=== PATIENT | male | born 1945 | race Caucasian/White ===

== ENCOUNTER 2019-06-19 11:31 | Emergency (ER) | payer MEDICARE, BC ==
[2019-06-19] MEDS ORDERED: Ketorolac 30 MG/ML SDV IVPUSH ONE (11:44)
[2019-06-19] MEDS ORDERED: Ondansetron 4 MG/2 ML SDV IVPUSH ONE (11:44)
[2019-06-19] MEDS ORDERED: Sodium Chloride 0.9% 1,000 ML IV SCH (11:45)
[2019-06-19] MEDS ORDERED: Tamsulosin 0.4 MG Cap.ER PO ONE (12:15)
--- NOTE | 2019-06-19 12:21 | EDM.PDOC ---
ED HPI GENERAL MEDICAL PROBLEM - General Chief Complaint: Abdominal Pain Stated Complaint: ABD PAIN Time Seen by Provider: 06/19/19 11:40 Source of Information: Reports: Patient, Family History Limitations: Reports: No Limitations - History of Present Illness INITIAL COMMENTS - FREE TEXT/NARRATIVE: c/o R flank pain felt fine yesterday, onset pain at 3:30 AM, sharp, cramping, eased off, then returned when to [facility], Yamel Levine called and sent pt here, he was quite uncomfortable in clinic, would not lay still for phlebotomy rolling on bed here in ED as well, IV started, felt much better after Toradol 30 mg IV given as well as Zofran 4 mg IV for mild nausea here with had one prior attack renal colic 10y ago, passed spontaneously not on meds had nl BM earlier today without change in pain no f/c/d pain R flank and R lower back into R groin had hernia repair in past, no other abd surgery R lower abdomen Pain Score (Numeric/FACES): 10 - Related Data Allergies Allergy/AdvReac Type Severity Reaction Status Date / Time No Known Allergies Allergy Verified 09/30/14 18:08 Home Meds: Home Meds Aspirin [Ecotrin EC] 325 mg PO BID 06/29/15 [History] Polyethylene Glycol 3350 [MiraLAX] 17 gm PO DAILY 06/29/15 [History] Sennosides [Senna Laxative] 25 mg PO BID 06/29/15 [History] Acetaminophen/HYDROcodone [[place] 325-5 MG] 1 - 2 tab PO Q6H PRN #20 tab [Rx] Ciprofloxacin HCl 500 mg PO BID #13 tablet 06/19/19 [Rx] Hydrocodone/Acetaminophen [[place] 5-325 Tablet] 1 each PO Q6H PRN #6 tablet 06/19 [Rx] Ketorolac [Toradol] 10 mg PO QID #20 tab 06/19/19 [Rx] Tamsulosin HCl 0.4 mg PO DAILY #7 capsule 06/19/19 [Rx] Past Medical History - Past Health History Medical/Surgical History: Denies Medical/Surgical History HEENT History: Reports: Impaired Vision Cardiovascular History: Reports: None Respiratory History: Reports: None Gastrointestinal History: Reports: None Genitourinary History: Reports: None 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 L hip replacement 06/2015 Neurological History: Reports: None Psychiatric History: Reports: None Endocrine/Metabolic History: Reports: None Hematologic History: Reports: None Immunologic History: Reports: None Oncologic (Cancer) History: Reports: None Dermatologic History: Reports: Other (See Below) Other Dermatologic History: MORTENSEN OF LOWER LEGS WITH SKIN GRAFTING AT AGE 8 - Infectious Disease History Other Infectious Disease History: PT DOES NOT KNOW - Past Surgical History Musculoskeletal Surgical History: Reports: Hip Replacement, Shoulder Surgery, Other (See Below) ED ROS GENERAL - Review of Systems Review Of Systems: See Below Constitutional: Reports: No Symptoms HEENT: Reports: No Symptoms Respiratory: Reports: No Symptoms Cardiovascular: Reports: No Symptoms Endocrine: Reports: No Symptoms GI/Abdominal: Reports: Abdominal Pain, Nausea. Denies: Vomiting : Reports: No Symptoms Musculoskeletal: Reports: Back Pain Skin: Reports: No Symptoms Neurological: Reports: No Symptoms Psychiatric: Reports: No Symptoms Hematologic/Lymphatic: Reports: No Symptoms Immunologic: Reports: No Symptoms ED EXAM, GI/ABD - Physical Exam Exam: See Below Exam Limited By: No Limitations General Appearance: Alert, WD/WN, Moderate Distress Nose: Normal Inspection Throat/Mouth: Normal Inspection, Normal Lips, Normal Voice, No Airway Compromise Head: Atraumatic, Normocephalic Neck: Normal Inspection, Supple, Non-Tender, Full Range of Motion Respiratory/Chest: No Respiratory Distress, Lungs Clear, Normal Breath Sounds, No Accessory Muscle Use, Chest Non-Tender Cardiovascular: Regular Rate, Rhythm, No Edema, No Gallop, No JVD, No Murmur GI/Abdominal Exam: Soft, Pelvis Stable, Other (BS present, normal to slight decrease, 1+ tender R flank and R groin and suprapubic, mild R CVAT, no guard, no rebound). No: Distended, Guarding, Rigid, Rebound Back Exam: Normal Inspection, Full Range of Motion, NT Extremities: Normal Inspection, Normal Range of Motion, Non-Tender, Other ( hyperpigmentation pretib b/l, no edema) Neurological: Alert, Oriented, CN II-XII Intact, Normal Cognition, No Motor/ Sensory Deficits Psychiatric: Normal Affect, Normal Mood Skin Exam: Warm, Dry, Intact, Normal Color, No Rash Lymphatic: No Adenopathy Course - Vital Signs Last Recorded V/S: Last Vital Signs Temp 36.4 C 06/19/19 11:34 Pulse 94 06/19/19 12:25 Resp 16 06/19/19 12:25 BP 169/85 H 06/19/19 12:25 Pulse Ox 94 L 06/19/19 12:25 - Orders/Labs/Meds Orders: Active Orders 24 hr Category Date Time Status Abdomen Pelvis wo Cont [CT] Stat Exams 06/19/19 11:46 Taken CULTURE URINE [RM] Stat Lab 06/19/19 14:17 Ordered Sodium Chloride 0.9% [Normal Saline] 1,000 ml Med 06/19/19 11:45 Active IV ASDIRECTED Medication Orders Sodium Chloride (Normal Saline) 1,000 mls @ 999 mls/hr IV ASDIRECTED ROEYR Last Admin: 06/19/19 12:15 Dose: 999 mls/hr Labs: Laboratory Tests 06/19/19 06/19/19 06/19/19 Range/Units 11:55 11:55 11:55 WBC 7.7 (4.5-12.0) X10-3/uL RBC 4.92 (4.30-5.75) x10(6)uL Hgb 15.7 (13.5-17.8) g/dL Hct 46.4 (30.0-51.3) % MCV 94.3 (80-96) fL MCH 31.9 (27.7-33.6) pg MCHC 33.8 (32.2-35.4) g/dL RDW 12.8 (11.5-15.5) % Plt Count 182 (125-369) X10(3)uL MPV 7.8 (7.4-10.4) fL Neut % (Auto) 84.7 H (46-82) % Lymph % (Auto) 10.6 L (13-37) % [place] % (Auto) 3.7 L (4-12) % Eos % (Auto) 0 L (1.0-5.0) % Baso % (Auto) 1 (0-2) % Neut # (Auto) 6.5 (1.6-8.3) # Lymph # (Auto) 0.8 (0.6-5.0) # [place] # (Auto) 0.3 (0.0-1.3) # Eos # (Auto) 0.0 (0.0-0.8) # Baso # (Auto) 0.1 (0.0-0.2) # Sodium 141 (135-145) mmol/L Potassium 4.2 (3.5-5.3) mmol/L Chloride 105 (100-110) mmol/L Carbon Dioxide 23 (21-32) mmol/L BUN 12 (7-18) mg/dL Creatinine 1.4 H (0.70-1.30) mg/dL Est Cr Clr Drug Dosing 49.25 mL/min Estimated GFR (MDRD) 50 L (>60) BUN/Creatinine Ratio 8.6 L (9-20) Glucose 158 H (80-116) mg/dL Calcium 9.2 (8.6-10.2) mg/dL Total Bilirubin 0.8 (0.1-1.3) mg/dL AST 30 H (5-25) IU/L ALT 40 H (12-36) U/L Alkaline Phosphatase 110 (56-112) IU/L C-Reactive Protein 0.4 L (0.5-0.9) mg/dL Total Protein 7.6 (6.0-8.0) g/dL Albumin 3.7 (3.2-4.6) g/dL Globulin 3.9 g/dL Albumin/Globulin Ratio 1.0 Urine Color (YELLOW) Urine Appearance (CLEAR) Urine pH (5.0-6.5) Ur Specific [place] (1.010-1.025) Urine Protein (NEGATIVE) mg/dL Urine Glucose (UA) (NORMAL) mg/dL Urine Ketones (NEGATIVE) mg/dL Urine Occult Blood (NEGATIVE) Urine Nitrite (NEGATIVE) Urine Bilirubin (NEGATIVE) Urine Urobilinogen (NEGATIVE) mg/dL Ur Leukocyte Esterase (NEGATIVE) Urine RBC (0-5) Urine WBC (0-5) Ur Squamous Epith Cells (NS,R,O) Urine Bacteria (NS) 06/19/19 Range/Units 13:35 WBC (4.5-12.0) X10-3/uL RBC (4.30-5.75) x10(6)uL Hgb (13.5-17.8) g/dL Hct (30.0-51.3) % MCV (80-96) fL MCH (27.7-33.6) pg MCHC (32.2-35.4) g/dL RDW (11.5-15.5) % Plt Count (125-369) X10(3)uL MPV (7.4-10.4) fL Neut % (Auto) (46-82) % Lymph % (Auto) (13-37) % [place] % (Auto) (4-12) % Eos % (Auto) (1.0-5.0) % Baso % (Auto) (0-2) % Neut # (Auto) (1.6-8.3) # Lymph # (Auto) (0.6-5.0) # [place] # (Auto) (0.0-1.3) # Eos # (Auto) (0.0-0.8) # Baso # (Auto) (0.0-0.2) # Sodium (135-145) mmol/L Potassium (3.5-5.3) mmol/L Chloride (100-110) mmol/L Carbon Dioxide (21-32) mmol/L BUN (7-18) mg/dL Creatinine (0.70-1.30) mg/dL Est Cr Clr Drug Dosing mL/min Estimated GFR (MDRD) (>60) BUN/Creatinine Ratio (9-20) Glucose (80-116) mg/dL Calcium (8.6-10.2) mg/dL Total Bilirubin (0.1-1.3) mg/dL AST (5-25) IU/L ALT (12-36) U/L Alkaline Phosphatase (56-112) IU/L C-Reactive Protein (0.5-0.9) mg/dL Total Protein (6.0-8.0) g/dL Albumin (3.2-4.6) g/dL Globulin g/dL Albumin/Globulin Ratio Urine Color Yellow (YELLOW) Urine Appearance Cloudy (CLEAR) Urine pH 7.0 H (5.0-6.5) Ur Specific [place] 1.010 (1.010-1.025) Urine Protein Negative (NEGATIVE) mg/dL Urine Glucose (UA) Normal (NORMAL) mg/dL Urine Ketones 15 H (NEGATIVE) mg/dL Urine Occult Blood Large H (NEGATIVE) Urine Nitrite Positive H (NEGATIVE) Urine Bilirubin Negative (NEGATIVE) Urine Urobilinogen Normal (NEGATIVE) mg/dL Ur Leukocyte Esterase Large H (NEGATIVE) Urine RBC >100 H (0-5) Urine WBC >100 H (0-5) Ur Squamous Epith Cells Occasional (NS,R,O) Urine Bacteria Many H (NS) Meds: Medications Generic Name Dose Route Start Last Admin Trade Name Rosa PRN Reason Stop Dose Admin Sodium Chloride 1,000 mls @ 999 mls/hr 06/19/19 11:45 06/19/19 12:15 Normal Saline IV 999 mls/hr ASDIRECTED ROYER Administration Discontinued Medications Generic Name Dose Route Start Last Admin Trade Name Rosa PRN Reason Stop Dose Admin Ciprofloxacin 750 mg 06/19/19 14:26 06/19/19 14:32 Ciprofloxacin Hcl PO 06/19/19 14:27 750 mg ONETIME ONE Administration Ketorolac Tromethamine 30 mg 06/19/19 11:44 06/19/19 11:50 Toradol IVPUSH 06/19/19 11:45 30 mg ONETIME ONE Administration Ondansetron HCl 4 mg 06/19/19 11:44 06/19/19 12:10 Zofran IVPUSH 06/19/19 11:45 4 mg ONETIME ONE Administration Tamsulosin HCl 0.4 mg 06/19/19 12:15 06/19/19 12:22 Flomax PO 06/19/19 12:16 0.4 mg ONETIME ONE Administration Departure - Departure Time of Disposition: 14:37 Disposition: Home, Self-Care 01 Condition: Good Clinical Impression: Ureteral stone, Renal colic on right side, Nephrolithiasis, Urinary tract infection, Renal insufficiency, Elevated blood pressure reading, Elevated glucose level, Elevated liver function tests, Fatty liver, BPH (benign prostatic hyperplasia) - Discharge Information *PRESCRIPTION DRUG MONITORING PROGRAM REVIEWED*: Not Applicable *COPY OF PRESCRIPTION DRUG MONITORING REPORT IN PATIENT QUINTIN: Not Applicable Prescriptions: Ciprofloxacin HCl 500 mg PO BID #13 tablet Hydrocodone/Acetaminophen [[place]ay 5-325 Tablet] 1 each PO Q6H PRN #6 tablet PRN Reason: Pain Ketorolac [Toradol] 10 mg PO QID #20 tab Tamsulosin HCl 0.4 mg PO DAILY #7 capsule Instructions: Kidney Stones, Renal Colic, Urinary Tract Infection, Adult, Hyperglycemia Referrals: Eddy Escobar MD [Primary Care Provider] - Forms: ED Department Discharge Additional Instructions: For infection, take ciprofloxacin 500 mg 1 tab 2 times a day for 7 days, first does tonight. To relax ureter, take ketorolac 10 mg 1 tab 4 times a day until you pass the stone. To relax ureter, take tamsulosin 0.4 mg 1 tab daily until you pass the stone. Screen your urine and take the stone in to your physician. For pain, as needed, take hydrocodone with acetaminophen 5/325 mg 1 tab every 6 hours as needed. No alcohol. See Dr Escobar in 2-3 days for follow up of your stone and infection. You will also want to discuss other health issues with him including: decreased kidney function, elevated glucose, elevated blood pressure, elevated liver function tests, enlarged prostate. Return to ED if you have pain that is not controlled at home or develop other symptoms. - My Orders Last 24 Hours: My Active Orders 06/19/19 11:45 Sodium Chloride 0.9% [Normal Saline] 1,000 ml IV ASDIRECTED 06/19/19 11:46 Abdomen Pelvis wo Cont [CT] Stat 06/19/19 14:17 CULTURE URINE [RM] Stat - Assessment/Plan Last 24 Hours: My Active Orders 06/19/19 11:45 Sodium Chloride 0.9% [Normal Saline] 1,000 ml IV ASDIRECTED 06/19/19 11:46 Abdomen Pelvis wo Cont [CT] Stat 06/19/19 14:17 CULTURE URINE [RM] Stat
[2019-06-19] MEDS ORDERED: Ciprofloxacin 500 MG Tab PO ONE (14:26)
[2019-06-19 15:10] VITALS: BP 170/81; PULSE 92
== END 2019-06-19 14:58 | disposition home or self-care (01) ==
LOC: FB.ED 11:31
DX: N13.6 Pyonephrosis (principal); N28.9 Disorder of kidney and ureter, unspecified; N40.0 Benign prostatic hyperplasia without lower urinary tract symptoms; R79.89 Other specified abnormal findings of blood chemistry; R73.9 Hyperglycemia, unspecified; K76.0 Fatty (change of) liver, not elsewhere classified; Z79.82 Long term (current) use of aspirin
CPT/HCPCS: 36415; 74176; 80053; 81001; 85025; 86140; 87086; 96361; 96374; 96375; 99284; A9270; J1885; J2405; J7030; 87088

== ENCOUNTER 2019-07-13 00:31 | Emergency (ER) | payer MEDICARE, BC ==
[2019-07-13] MEDS: Lidocaine 2% HCl 6 ML JEL.PF.APP ONE ×3 (00:52→07:33)
--- NOTE | 2019-07-13 01:03 | EDM.PDOC ---
ED HPI GENERAL MEDICAL PROBLEM - General Chief Complaint: Genitourinary Problem Stated Complaint: CAN'T URINATE Time Seen by Provider: 07/13/19 00:55 Source of Information: Reports: Patient History Limitations: Reports: No Limitations - History of Present Illness INITIAL COMMENTS - FREE TEXT/NARRATIVE: 74-year-old male who has a history of a kidney stone for which a ureteral stent was placed approximately one week ago and today he had cystoscopy with stent removal and attempt at stone extraction by Dr. Amezcua, urologist at [facility]. The patient reports that they were unable to find any stone and a ureteral stent was replaced. And the patient was discharged from a surgery about midafternoon. He reports that initially he was able to pass urine and it was bloody but this seemed to clear up and then at approximately 6 PM tonight after having some problems with frequency before this, he was unable to pass any urine except for dribbles of blood. Over time, he reports that he has had increasing frequency with only dribbles of blood. He reports pain in his penis but also a pain in his lower abdomen that he rates as a 6/10. It is a burning and pressure type feeling. He has had no nausea or vomiting. There is been no fever noted. He reports that he feels he has to pass stool he urinates. No chest pain. No difficulty breathing. He has been able to take liquids. There are no other associated signs or symptoms. There are no other modifying factors. 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 MAKER: Reports: Other (see below) (Nothing) - Related Data Allergies Allergy/AdvReac Type Severity Reaction Status Date / Time No Known Allergies Allergy Verified 09/30/14 18:08 Home Meds: Home Meds Aspirin [Ecotrin EC] 325 mg PO BID 06/29/15 [History] Polyethylene Glycol 3350 [MiraLAX] 17 gm PO DAILY 06/29/15 [History] Sennosides [Senna Laxative] 25 mg PO BID 06/29/15 [History] Acetaminophen/HYDROcodone [[place] 325-5 MG] 1 - 2 tab PO Q6H PRN #20 tab [Rx] Ciprofloxacin HCl 500 mg PO BID #13 tablet 06/19/19 [Rx] Hydrocodone/Acetaminophen [[place] 5-325 Tablet] 1 each PO Q6H PRN #6 tablet 06/19 [Rx] Ketorolac [Toradol] 10 mg PO QID #20 tab 06/19/19 [Rx] Tamsulosin HCl 0.4 mg PO DAILY #7 capsule 06/19/19 [Rx] Past Medical History Genitourinary History: Reports: BPH, Chronic Renal Insuffiency, Renal Calculus Musculoskeletal History: Reports: Arthritis Other Musculoskeletal History: STATES LEFT ROTATOR CUFF REPAIR. 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) Social & Family History - Tobacco Use Smoking Status *Q: Never Smoker - Caffeine Use Caffeine Use: Reports: Coffee, Soda, Tea - Alcohol Use Alcohol Use History: Yes Alcohol Use Frequency: Socially - Living Situation & Occupation Living situation: Reports: , with Spouse Occupation: Retired ED ROS GENERAL - Review of Systems Review Of Systems: See Below Constitutional: Reports: No Symptoms HEENT: Reports: No Symptoms Respiratory: Reports: No Symptoms Cardiovascular: Reports: No Symptoms Endocrine: Reports: No Symptoms GI/Abdominal: Reports: Abdominal Pain (Suprapubic fullness and discomfort) : Reports: Frequency, Hematuria, Urinary Retention Musculoskeletal: Reports: No Symptoms Skin: Reports: No Symptoms Neurological: Reports: No Symptoms Hematologic/Lymphatic: Reports: No Symptoms Immunologic: Reports: No Symptoms ED EXAM, RENAL/ - Physical Exam Exam: See Below Exam Limited By: No Limitations General Appearance: Alert, Moderate Distress, Obese Eye Exam: Bilateral Eye: EOMI, Normal Inspection, PERRL Ears: Normal External Exam, Hearing Grossly Normal Nose: Normal Inspection, Normal Mucosa, No Blood Throat/Mouth: Normal Inspection, Normal Lips, Normal Oropharynx, Normal Voice, No Airway Compromise Head: Atraumatic, Normocephalic Neck: Normal Inspection, Supple, Non-Tender, Full Range of Motion Respiratory/Chest: No Respiratory Distress, Lungs Clear, Normal Breath Sounds, No Accessory Muscle Use, Chest Non-Tender Cardiovascular: Normal Peripheral Pulses, Regular Rate, Rhythm, No Edema, No Murmur GI/Abdominal: Normal Bowel Sounds, Distended (Suprapubic fullness), Tender ( Tenderness to palpation over his suprapubic area). No: Guarding, Rigid, Rebound (Male) Exam: Circumcised, Other (Flores catheter within the penis and when removed blood issuing from the urethral meatus) Back Exam: Normal Inspection Extremities: Normal Inspection, Normal Range of Motion, Non-Tender, Normal Capillary Refill, Pedal Edema (Trace) Neurological: Alert, Oriented, CN II-XII Intact, Normal Cognition, No Motor/ Sensory Deficits Skin Exam: Warm, Dry, Intact, Normal Color, No Rash Course - Vital Signs Last Recorded V/S: Last Vital Signs Temp 36.5 C 07/13/19 02:39 Pulse 102 H 07/13/19 02:39 Resp 17 07/13/19 02:39 BP 146/67 H 07/13/19 02:39 Pulse Ox 94 L 07/13/19 02:39 - Orders/Labs/Meds Orders: Active Orders 24 hr Category Date Time Status Bladder Scan [RC] STAT Care 07/13/19 01:03 Active Insert Urinary Catheter [OM.PC] Stat Care 07/13/19 01:03 Ordered Urinary Catheter Assessment [RC] QSHIFT Care 07/13/19 01:04 Active CULTURE URINE [RM] Stat Lab 07/13/19 01:03 Ordered UA W/MICROSCOPIC [URIN] Stat Lab 07/13/19 01:03 Ordered Sodium Chloride 0.9% @ 150 MLS/HR (1000ml) Med 07/13/19 02:30 Ordered Sodium Chloride 0.9% [Normal Saline] 1,000 ml IV ASDIRECTED Sodium Chloride 0.9% [Saline Flush] Med 07/13/19 02:16 Ordered 10 ml FLUSH ASDIRECTED PRN Peripheral IV Insertion Adult [OM.PC] Routine Oth 07/13/19 02:16 Ordered Medication Orders Sodium Chloride (Normal Saline) 1,000 mls @ 150 mls/hr IV ASDIRECTED ROYER Last Admin: 07/13/19 02:29 Dose: 150 mls/hr Sodium Chloride (Saline Flush) 10 ml FLUSH ASDIRECTED PRN PRN Reason: Keep Vein Open Labs: Laboratory Tests 07/13/19 07/13/19 07/13/19 Range/Units 02:25 02:25 02:25 WBC 12.5 H (4.5-12.0) X10-3/uL RBC 4.74 (4.30-5.75) x10(6)uL Hgb 14.8 (13.5-17.8) g/dL Hct 44.2 (30.0-51.3) % MCV 93.3 (80-96) fL MCH 31.3 (27.7-33.6) pg MCHC 33.6 (32.2-35.4) g/dL RDW 12.5 (11.5-15.5) % Plt Count 212 (125-369) X10(3)uL MPV 8.2 (7.4-10.4) fL Neut % (Auto) 88.8 H (46-82) % Lymph % (Auto) 4.9 L (13-37) % [place] % (Auto) 4.2 (4-12) % Eos % (Auto) 0 L (1.0-5.0) % Baso % (Auto) 2 (0-2) % Neut # (Auto) 11.1 H (1.6-8.3) # Lymph # (Auto) 0.6 (0.6-5.0) # [place] # (Auto) 0.5 (0.0-1.3) # Eos # (Auto) 0.0 (0.0-0.8) # Baso # (Auto) 0.3 H (0.0-0.2) # PT 9.8 (8.7-11.1) INR 1.01 (0.89-1.13) Sodium 137 (135-145) mmol/L Potassium 4.3 (3.5-5.3) mmol/L Chloride 104 (100-110) mmol/L Carbon Dioxide 22 (21-32) mmol/L BUN 19 H (7-18) mg/dL Creatinine 1.7 H (0.70-1.30) mg/dL Est Cr Clr Drug Dosing TNP Estimated GFR (MDRD) 40 L (>60) BUN/Creatinine Ratio 11.2 (9-20) Glucose 161 H (80-116) mg/dL Calcium 9.0 (8.6-10.2) mg/dL Meds: Medications Generic Name Dose Route Start Last Admin Trade Name Freq PRN Reason Stop Dose Admin Sodium Chloride 1,000 mls @ 150 mls/hr 07/13/19 02:30 07/13/19 02:29 Normal Saline IV 150 mls/hr ASDIRECTED ROYER Administration Sodium Chloride 10 ml 07/13/19 02:16 Saline Flush FLUSH ASDIRECTED PRN Keep Vein Open Discontinued Medications Generic Name Dose Route Start Last Admin Trade Name Freq PRN Reason Stop Dose Admin Hydromorphone HCl 0.5 mg 07/13/19 02:16 07/13/19 02:28 Dilaudid IVPUSH 07/13/19 02:17 0.5 mg ONETIME ONE Administration Lidocaine HCl Confirm 07/13/19 01:31 Glydo Administered 07/13/19 01:32 Dose 6 ml .ROUTE .STK-MED ONE Ondansetron HCl 4 mg 07/13/19 02:16 07/13/19 02:29 Zofran IVPUSH 07/13/19 02:17 4 mg ONETIME ONE Administration - Re-Assessments/Exams Free Text/Narrative Re-Assessment/Exam: 07/13/19 01:45: Patient with urinary retention and hematuria. The nursing staff placed a 24 [place] 3-way Flores and no drainage resulted. I was asked to come in to see the patient at this time and it appeared that the Flores catheter was meeting some resistance when attempting to push it back in. The 3-way Flores catheter balloon had been blown up with 30 mL of saline by the nurse. The saline within the catheter balloon was removed and the Flores catheter was removed. At this point, with the patient's verbal consent, I used lidocaine jelly injected into the urethral meatus and then inserted a 24 [place] 3-way Flores. At about [address], I met resistance but appeared to be able to push past it but still no drainage came from the Flores. I did not inflate the Flores catheter balloon at this point. I then attempted to irrigate Flores using the irrigating port and appeared to be able to irrigate the catheter but no urine, blood or saline came from the catheter following this irrigation. At this point I instilled approximately 40 mL through the catheter and was unable to withdraw any urine, saline or blood. I then removed the Flores catheter and the patient did appear to be able to pass clots but also some urine from his penis. 07/13/19 02:15: I called and discussed the patient's case with Dr. Nicole, urologist talent acquisition relationship manager at [facility], and he felt that if we were unable to place a Flores catheter that was draining and irrigateable, then the patient would need to be transferred to [facility] in [place]. At this point, he referred me to the ER physician to give him report on the patient. I then discussed the patient's case with Dr. Titus, ED physician at [facility] in [place], and he has agreed to accept the patient in transfer. The patient will be transferred via ambulance to [facility] for urology and urologic specially services not available at [facility]. The patient and his are in agreement with the plans for transfer. A CBC and basic metabolic profile showed a normal H &H and some evidence of renal insufficiency with a creatinine of 1.7. The INR was normal. I will also place an IV and give the patient normal saline IV with Dilaudid and Zofran for his pain. The patient will be kept NPO. Departure - Departure Time of Disposition: 03:00 Disposition: DC/Tfer to Acute Hospital 02 Condition: Fair (Stable) Clinical Impression: Gross hematuria, Acute urinary retention Flores catheter problem Qualifiers: Encounter type: initial encounter Qualified Code(s): T83.9XXA - Unspecified complication of genitourinary prosthetic device, implant and graft, initial encounter - Discharge Information Referrals: Eddy Escobar MD [Primary Care Provider] - Forms: ED Department Discharge - My Orders Last 24 Hours: My Active Orders 07/13/19 01:03 Bladder Scan [RC] STAT Insert Urinary Catheter [OM.PC] Stat CULTURE URINE [RM] Stat UA W/MICROSCOPIC [URIN] Stat 07/13/19 01:04 Urinary Catheter Assessment [RC] QSHIFT 07/13/19 02:16 Sodium Chloride 0.9% [Saline Flush] 10 ml FLUSH ASDIRECTED PRN Peripheral IV Insertion Adult [OM.PC] Routine 07/13/19 02:30 Sodium Chloride 0.9% @ 150 MLS/HR (1000ml) Sodium Chloride 0.9% [Normal Saline] 1,000 ml IV ASDIRECTED - Assessment/Plan Last 24 Hours: My Active Orders 07/13/19 01:03 Bladder Scan [RC] STAT Insert Urinary Catheter [OM.PC] Stat CULTURE URINE [RM] Stat UA W/MICROSCOPIC [URIN] Stat 07/13/19 01:04 Urinary Catheter Assessment [RC] QSHIFT 07/13/19 02:16 Sodium Chloride 0.9% [Saline Flush] 10 ml FLUSH ASDIRECTED PRN Peripheral IV Insertion Adult [OM.PC] Routine 07/13/19 02:30 Sodium Chloride 0.9% @ 150 MLS/HR (1000ml) Sodium Chloride 0.9% [Normal Saline] 1,000 ml IV ASDIRECTED
[2019-07-13] MEDS ORDERED: Sodium Chloride 0.9% 10 ML Syringe FLUSH PRN (02:16)
[2019-07-13] MEDS: HYDROmorphone 2 MG/ML SDV IVPUSH ONE (02:28)
[2019-07-13] MEDS: Sodium Chloride 0.9% 1,000 ML IV SCH (02:29)
[2019-07-13] MEDS: Ondansetron 4 MG/2 ML SDV IVPUSH ONE (02:29)
[2019-07-13 02:43] VITALS: BP 146/67; PULSE 102
== END 2019-07-13 03:06 ==
LOC: FB.ED 00:31
DX: R31.0 Gross hematuria (principal); R33.9 Retention of urine, unspecified; T83.9XXA Unspecified complication of genitourinary prosthetic device, implant and graft, initial encounter; N18.9 Chronic kidney disease, unspecified; Z79.82 Long term (current) use of aspirin
CPT/HCPCS: 36415; 51702; 51798; 80048; 85025; 85610; 96361; 96374; 96375; 99284; A9270; J1170; J2405; J7030

== ENCOUNTER 2019-08-30 06:43 | Day surgery (SDC) | payer MEDICARE, BC ==
[2019-08-30] MEDS ORDERED: Propofol 200 MG/20 ML SDV IV ONE (06:44)
[2019-08-30] MEDS ORDERED: Lactated Ringers 1,000 ML IV SCH (06:45)
[2019-08-30] MEDS ORDERED: Sodium Chloride 0.9% 10 ML Syringe FLUSH PRN (06:45)
[2019-08-30] MEDS ORDERED: Simethicone Drops 40 MG/0.6 ML 30 ML Bottle ONE (08:06)
--- NOTE | 2019-08-30 08:30 | PCM.OPNOTE ---
- General Post-Op/Procedure Note Date of Surgery/Procedure: 08/30/19 Operative Procedure(s): c scope with biopsy Findings: transverse colon polyp lipoma of sigmoid Pre Op Diagnosis: screening Post-Op Diagnosis: transverse colon polyp. lipoma of sigmoid Anesthesia Technique: MAC Primary Surgeon: Aba Julien Anesthesia Provider: Lex Lainez Pathology: transverse colon Complications: None Condition: Good Free Text/Narrative:: see dictation
[2019-08-30 08:53] VITALS: BP 139/76; PULSE 75
--- NOTE | 2019-08-30 15:07 | OR ---
DATE OF OPERATION: 08/30/2019 SURGEON: Aba Julien MD PROCEDURE PERFORMED: Colonoscopy with cold forceps biopsy. PREOPERATIVE DIAGNOSIS: Screening exam. POSTOPERATIVE DIAGNOSIS: Transverse colon polyp and lipoma of the sigmoid. INDICATIONS FOR PROCEDURE: This is a 74-year-old white male presents for a followup colonoscopy. He was offered and accepted same. DESCRIPTION OF OPERATION: After an excellent IV sedation was administered, digital rectal exam was performed, no marked abnormality was noted. The flexible colonoscope was inserted and advanced to the cecum. Prep was excellent. The following findings were noted: Ascending colon, unremarkable. Transverse colon, distal transverse colon with a small 2-mm polyp, biopsied and sent for permanent. Descending colon, unremarkable. Sigmoid, a roughly 1-cm submucosal lump was noted, was mobile, yellowish in color and appeared to dimple consistent with a lipoma. A photo was taken. Rectum and anus, unremarkable. Results to be sent by letter. Patient tolerated the procedure well. /[id number] LOTTIE/JUANI
== END 2019-08-30 08:50 | disposition home or self-care (01) ==
LOC: FB.SDS 06:43
PROVIDERS: ATTEND Surgery
DX: Z12.11 Encounter for screening for malignant neoplasm of colon (principal); D12.3 Benign neoplasm of transverse colon; E78.49 Other hyperlipidemia
CPT/HCPCS: 88305; A9270-GY; J2704; J7120

== ENCOUNTER 2022-09-05 16:30 | Emergency (ER) | payer MEDICARE, BC | END 2022-09-05 17:00 | disposition home or self-care (01) | LOC: FB.ED 16:30 | DX: Z53.21 Procedure and treatment not carried out due to patient leaving prior to being seen by health care provider (principal) ==

== ENCOUNTER → 2024-04-12 | Day surgery (SDC) | payer MEDICARE, BC ==
[~2024-04-12] MED LIST: Lidocaine 2% 100 MG/5 ML Syringe IVPUSH ONE; Propofol 200 MG/20 ML SDV IV ONE; Sodium Chloride 0.9% 10 ML Syringe FLUSH PRN
[2024-04-12] MEDS: Lactated Ringers 1,000 ML IV SCH (08:12)
[2024-04-12 10:35] VITALS: BP 122/66; PULSE 62
== END ==
LOC: FB.SDS 07:22
PROVIDERS: ATTEND Surgery
DX: Z12.11 Encounter for screening for malignant neoplasm of colon (principal); D17.79 Benign lipomatous neoplasm of other sites; K57.30 Diverticulosis of large intestine without perforation or abscess without bleeding; Z86.010 Personal history of colon polyps; E78.5 Hyperlipidemia, unspecified; E66.9 Obesity, unspecified; N40.1 Benign prostatic hyperplasia with lower urinary tract symptoms; Z79.899 Other long term (current) drug therapy
CPT/HCPCS: J2704; J7120